=== PATIENT | female | born 1975 | race Hispanic/Latino ===

== ENCOUNTER 2018-11-24 18:54 | Emergency (ER) | payer SELFPAY ==
--- OUTSIDE RECORDS SUMMARY | 2018-11-24 18:56 | XMS REPORT ---
:1975 Author Organization [facility] Address [address] [place] [address] Care Team Providers Name Role Phone Unavailable Unavailable Unavailable Problems This patient has no known problems. Allergies, Adverse Reactions, Alerts This patient has no known allergies or adverse reactions. Medications This patient has no known medications. Results Test Description Test Time Test Comments Text Results Atomic Results Result Comments SCR MAMM BILATERAL KRISTIAN 2018-11-18 08:13:30 - SCR MAMM BILATERAL KRISTIAN CAD CAD DIGITAL DIGITALBILATERAL FIRST EVER DIGITAL SCREENING MAMMOGRAM 3D/2D WITH CAD: 11/06/2018CLINICAL: Asymptomatic. Digital breast tomosynthesis was performed in addition to routine CC and MLO views. Current mammographic images were evaluated by either a [facility] M-Vu or a [employer] ImageChecker CAD (computer aided detection system). No prior exams were available for comparison. This is a baseline exam.There are scattered fibroglandular tissues in both breasts. There is a benign intramammary node in both breasts. No suspicious mass, architectural distortion, malignant type calcification, or lymph node abnormality detected. IMPRESSION: BENIGNThere is no mammographic evidence of malignancy. Resume annual screening mammography in one year. Santos Blair M.D. rb/:11/18/2018 08:13:30 Slab Conditioner Supervisor: Ayse Moralez MM, [facility] Mammographyletter sent: BIRADS 1-2 Normal Mammogram BI-RADS: 2 Benign
[2018-11-24] MEDS ORDERED: HYDROCODONE/APAP 10/325 TAB ONE (20:36)
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
[2018-11-24 21:23] LABS: Urine Blood 1+ (NEG); Urine Glucose NEGATIVE (NEG); Urine Protein NEGATIVE (NEG); Urine Specific Gravity 1.025 (1.005-1.030); Urine pH 5.5 (5.0-7.0)
== END 2018-11-24 21:18 | disposition home or self-care (01) ==
LOC: ER 18:54
DX: M47.892 Other spondylosis, cervical region (principal); M25.552 Pain in left hip; V49.40XA Driver injured in collision with unspecified motor vehicles in traffic accident, initial encounter
CPT/HCPCS: 71045; 72040; 72100; 72170; 81003; 81025; 87086; 87088; 99284